=== PATIENT | male | born 1945 | race Hispanic/Latino ===

== ENCOUNTER 2024-01-27 07:57 | Day surgery (SDC) | payer OTHER ==
[2024-01-25 14:00] LABS: BASOPHILS # (AUTO) 0.05 K/uL (0.00-0.20); BASOPHILS % (AUTO) 0.8 % (0.0-5.0); EOSINOPHILS # (AUTO) 0.04 K/uL (0.00-0.70); EOSINOPHILS % (AUTO) 0.6 % (0.0-8.0); HEMATOCRIT 40.3 % (42-54); IMMATURE GRANULOCYTE ABSOLUTE 0.08 K/uL (0-1); LYMPHOCYTES # (AUTO) 1.6 K/uL (1.0-4.8); LYMPHOCYTES % (AUTO) 24.8 % (21.0-51.0); MEAN CORPUSCULAR HEMOGLOBIN 30.3 pg (27.0-33.0); MEAN CORPUSCULAR VOLUME 91.8 fL (79-99); MONOCYTES # (AUTO) 0.6 K/uL (0.1-1.0); MONOCYTES % (AUTO) 10.2 % (3.0-13.0); NEUTROPHILS # (AUTO) 3.9 K/uL (1.8-7.7); NEUTROPHILS % (AUTO) 62.3 % (40.0-77.0); PLATELET COUNT (AUTO) 212 K/uL (130-400); RED BLOOD CELL COUNT(AUTO) 4.39 MIL/uL (4.50-6.20); RED CELL DISTRIBUTION WIDTH 13.8 % (11.0-15.5); WHITE BLOOD COUNT (AUTO) 6.3 K/uL (4.8-10.8)
[2024-01-25 14:07] LABS: POTASSIUM 4.7 mmol/L (3.5-5.1)
[2024-01-25 14:46] VITALS: BP 98/53; PULSE 70; RESP 17
[~2024-01-27] VITALS: Ht 167.6 cm; Wt 61.3 kg
[2024-01-27] VITALS (14 sets, daily range): BP systolic 120–146; BP diastolic 51–68; PULSE 68–88; RESP 12–16
[~2024-01-27 07:57] MED LIST: CYAN-106 PO; FINA5TAB41 PO; GLIP-162 PO; LISI2.5T13 PO; METF-444 PO; PIOG15TA66 PO; PRAV20TA4 PO; SEMA0.258 SQ
[2024-01-27] MEDS ORDERED: IOHEXOL-350 50ML VIAL IV ONE (08:43)
[2024-01-27] MEDS ORDERED: FAMOTIDINE 20MG VIAL IV ONE (10:10)
[2024-01-27] MEDS ORDERED: ACETAMINOPHEN 1,000 MG/100 ML VIAL IV ONE (10:10)
[2024-01-27] MEDS ORDERED: PROPOFOL 10 MG/ML 20ML VIAL IV ONE (10:11)
[2024-01-27] MEDS: 0.9%NACL 1000ML 1,000 ML IV ONE (10:11)
[2024-01-27] MEDS ORDERED: LIDOCAINE PF 100MG/5ML (2%) SYRINGE 5ML ONE (10:11)
[2024-01-27] MEDS: CEFTRIAXONE 1G VIAL ONE (10:11)
[2024-01-27] MEDS ORDERED: FENTANYL CITRATE PF 50 MCG/1 ML 2ML VIAL ONE (10:12)
[2024-01-27] MEDS ORDERED: ONDANSETRON 4MG INJ ONE (10:46)
[2024-01-27] MEDS ORDERED: DEXAMETHASONE SOD PHOSPHATE 10MG/ML 1ML VIAL ONE (10:46)
[2024-01-27] MEDS ORDERED: EPHEDRINE SULFATE 50 MG/ML AMPULE ONE (10:55)
[2024-01-27] MEDS: CEFTRIAXONE 1G VIAL IVPB ONE (10:55)
[2024-01-27] MEDS: ONDANSETRON 4MG INJ ONE (12:14)
[2024-01-27] MEDS: MEPERIDINE-PF 25 MG/ML SYG ONE ×2 (12:15→12:35)
[2024-01-27] MEDS: PHENAZOPYRIDINE HCL 200 MG TABLET PO ONE (13:06)
== END 2024-01-27 13:45 | disposition home or self-care (01) ==
LOC: DAH 07:57
PROVIDERS: ATTEND Urology
DX: R31.9 Hematuria, unspecified (principal); N40.1 Benign prostatic hyperplasia with lower urinary tract symptoms; R35.0 Frequency of micturition; R35.1 Nocturia; E11.22 Type 2 diabetes mellitus with diabetic chronic kidney disease; I12.9 Hypertensive chronic kidney disease with stage 1 through stage 4 chronic kidney disease, or unspecified chronic kidney disease; N18.9 Chronic kidney disease, unspecified; Z87.891 Personal history of nicotine dependence; Z90.49 Acquired absence of other specified parts of digestive tract; Z98.890 Other specified postprocedural states; Z79.01 Long term (current) use of anticoagulants; Z79.899 Other long term (current) drug therapy
CPT/HCPCS: 80048; 85025; 36415; 93005; 52204; 82948 ×2; 88305; 74420; A6260; A4663; A4354; C1758; J3490 ×2; J3010; J1100; J7030; J2001; J0696 ×2; J2704; J2405 ×2; J2175 ×2; Q9967 ×2; A4358; A4215; A4223; A4222; A4221; A4600; A4510